=== PATIENT | female | born 1990 | race Caucasian/White ===

== ENCOUNTER 2019-11-29 23:06 | Emergency (ER) | payer BC, OTHER, SELFPAY ==
[2019-11-29 23:25] VITALS: BP 123/63; PULSE 82; RESP 16; TEMP 37.1; O2SAT 96; BMI 42.7
--- NOTE | 2019-11-29 23:35 | ED_ITS ---
HPI - Headache General: Chief Complaint: Headache Stated Complaint: dizzy, n/v Time Seen by Provider: 11/29/19 23:09 Source: patient Mode of arrival: ambulatory Limitations: no limitations History of Present Illness: HPI Narrative: Patient is a 28-year-old female who presents to ED today with complaints of a headache over the past 3 days. She is also describing some nausea and lightheadedness. Patient has an extensive history of migraine headaches in which she has suffered from for many years. She takes many medications in general but at least 4 different migraine medica tions. She states she has a neurologist back home in [place] that manages these. She tells me recently she has ran out of her temazepam that she takes for insomnia. She states the last time she ran out of this medication she also remembers feeling lightheaded. Patient denies neck pain/stiff neck, fevers, visual changes, URI symptoms, difficulty walking, slurred speech, numbness/tingling in her extremities. MD elicited complaint: headache Onset (ago): day(s) Onset description: gradually Location: frontal Pain scale (0-10): 8 Quality & Timing: similar to previous headaches Exacerbating factors: none Relieving factors: nothing Associated symptoms: Reports lightheadedness and nausea; Deny chest pain, fever(s), malaise, rash, syncope or vomiting Treatments prior to arrival: migraine medication Review of Systems General: Reports: 10 or more systems reviewed and unremarkable except in HPI and below Const: Denies: fever, chills, body aches, fatigue or malaise Eyes: Denies: change in vision, blurry vision, photophobia, floaters or seeing flashes ENMT: Denies: throat pain, enlarged tonsils, painful swallowing, oral sores/lesions, dental pain, ear pain, tinnitus, nasal discharge, nasal congestion, post nasal drip or facial/sinus pain Card: Reports: lightheadedness; Denies: chest pain, palpitations, irregular heart rhythm, syncope or shortness of breath on exertion Resp: Denies: shortness of breath, productive cough or pain on inspiration GI: Reports: nausea; Denies: abdominal pain, vomiting, vomiting blood, heartburn/indigestion or diarrhea : Denies: flank pain, difficulty urinating, painful urination, urinary frequency, urinary urgency or urinary hesitancy Musc: Denies: neck pain, back pain or joint pain Skin/Breast: Denies: rash, new lesion, changing lesion or changes in skin color Neuro: Reports: headache; Denies: numbness in extremities, weakness in extremities, changes in sensation, lack of coordination, difficulty walking, frequent falls, vertigo, slurred speech or difficulty communicating thoughts PFSH ED PFSH: Social History Smoking and tobacco status: never smoked Physical Exam Const: COMMON NORMALS: no apparent distress, oriented x3, no limitations and alert NUTRITIONAL APPEARANCE: obese morbidly obese ORIENTATION/CONSCIOUSNESS: Yes oriented to person, Yes oriented to place and Yes oriented to time HENMT: COMMON NORMALS: normocephalic, head/scalp atraumatic, hearing grossly normal bilaterally, external ears normal, EAC's normal, TM's normal bilaterally, external nose normal, nasal mucous membranes and turbinates normal, moist oral mucous membranes, oropharynx normal, dentition normal and gingiva normal HEAD & SCALP: normal to inspection, normocephalic and atraumatic FACE & SINUS: normal facial exam and sinuses nontender NOSE: external nose normal and nasal mucous membranes and turbinates normal EXTERNAL EAR: Yes external ears normal EXTERNAL AUDITORY CANAL: EAC's normal TYMPANIC MEMBRANE: TM's normal bilaterally THROAT: posterior oropharynx normal, tonsils normal and uvula midline Eye: COMMON NORMALS: PERRL, EOMs intact bilaterally and conjunctivae normal CONJUNCTIVA: Yes conjunctivae normal PUPIL: Yes PERRL Neck/C-Spine: COMMON NORMALS: full ROM, no lymphadenopathy and no meningeal signs Resp: COMMON NORMALS: normal respiratory effort Cardio: COMMON NORMALS: regular rate and regular rhythm RATE: regular rate RHYTHM: regular rhythm Neuro: [place] COMA SCALE: document GCS findings [place] coma scale eye opening: Spontaneous [place] coma scale verbal response: Orientated [place] coma scale motor response: Obey commands [place] coma scale total score: 15 COMMON NORMALS: oriented x3, CN's II-XII intact bilaterally, moves all extremities, no focal motor deficits and no sensory deficits noted SENSORIUM/ORIENTATION: Yes alert, Yes oriented to person, Yes oriented to place and Yes oriented to time MENINGEAL SIGNS: Yes no meningeal signs Skin: COMMON NORMALS: no rashes or lesions noted GENERAL SKIN EXAM: no rashes or lesions noted Course Vital Signs: Vital signs: Vital Signs Temperature 98.8 F 11/29/19 23:25 Pulse Rate 83 11/30/19 00:02 Respiratory Rate 18 11/30/19 00:02 Blood Pressure 135/78 11/30/19 00:02 Pulse Oximetry 94 11/30/19 00:02 MDM - Headache MDM Narrative: Medical decision making narrative: YANEZ improved after medications; states she feels comfortable going home Discharge Plan Discharge Patient Disposition: Home, Self-Care Clinical Impression: Migraine Qualifiers: Migraine type: without aura Status migrainosus presence: with status migrainosus Intractability: not intractable Qualified Code(s): G43.001 - Migraine without aura, not intractable, with status migrainosus Condition: Stable Prescriptions: No Action Acid Violin Maker Hand (ranitidine) 150 mg 150 mg PO BID RF: 0 benztropine 1 mg 1 mg PO BID RF: 0 lansoprazole 15 mg 15 mg PO DAILY RF: 0 metoprolol succinate 25 mg 25 mg PO DAILY RF: 0 quetiapine 400 mg 400 mg PO BEDTIME RF: 0 sertraline 100 mg 200 mg PO DAILY RF: 0 temazepam 30 mg 30 mg PO BEDTIME RF: 0 topiramate 50 mg 50 mg PO BID RF: 0 Discharge Orders: Discharge Order (Routine); Ordered 11/30/19 Ordered By: Domitila Quintana Discharge Diet: Usual diet Discharge Activity: Increase activity as tolerated Patient Instructions: Headache - Migraine (Adult), Migraine Headache (ED) Activity Restrictions/Additional Instructions: You may return to the emergency department for worsening/severe headache, fevers, visual changes, neck pain, repetitive episodes of nausea/vomiting, generally feeling ill, slurred speech, difficulty walking, any other concerns you may have. Coding Level of Care Code ED Sociocultural Anthropology Professor for Suman Fwd Exam Comprehensive
[2019-11-29] MEDS: ondansetron 2 mg/ML SDV 2 mL 4 MG IVP (23:57)
[2019-11-29] MEDS: ketorolac 30 mg/mL INJ IVP (23:58)
[2019-11-29] MEDS: temazepam 15 mg Capsule 30 MG PO (23:59)
[2019-11-30 00:02] VITALS: BP 135/78; PULSE 83; RESP 18; O2SAT 94
[2019-11-30] MEDS: sodium chloride 0.9% 1,000 ML 999 ML IV (00:02)
[2019-11-30 01:02] VITALS: BP 114/69; PULSE 79; RESP 16; O2SAT 96
== END 2019-11-30 01:04 | disposition home or self-care (01) ==
PROVIDERS: Emergency Provider Physician Assistant
DX: G43.001 Migraine without aura, not intractable, with status migrainosus (principal)
CPT/HCPCS: 12345; 96360; 96375; 99283; J1885; J2405; J7030

== ENCOUNTER 2019-12-14 00:28 | Emergency (ER) | payer BC, OTHER, SELFPAY ==
[2019-12-14 00:33] VITALS: BP 119/66; PULSE 87; RESP 16; TEMP 36; O2SAT 93; BMI 42.7
--- NOTE | 2019-12-14 00:44 | XR_ITS ---
WS: [id number] XR chest 1V portable [id number] REASON FOR EXAM: cough/congestion FINDINGS: The heart and mediastinal interfaces normal. The lung newell are well aerated no pneumonia, pleural effusion, pulmonary edema, no mass effect. Hilum and apices normal. No osseous abnormalities. XR/XR chest 1V portable [id number] IMPRESSION: Negative chest for acute pathology.
--- NOTE | 2019-12-14 00:44 | ECG_ITS ---
Measurements Intervals [place] Rate: 71 P: 17 IA: 198 QRS: 7 QRSD: 102 T: 9 QT: 436 QTc: 475 SINUS RHYTHM No previous ECG available for comparison Electronically Signed On 12-14-2019 17:15:28 CDT by Rolly Tucker M.D. [email or web address]
--- NOTE | 2019-12-14 00:45 | W.ED.ARRPALP ---
HPI - Arrhythmia/Palpitations General: Chief Complaint: Arrhythmia/Palpitations Stated Complaint: SOB Time Seen by Provider: 12/14/19 00:31 Source: patient Mode of arrival: ambulatory Limitations: no limitations History of Present Illness: HPI narrative: Patient is a 28-year-old female who presents to ED today with complaints of shortness of breath and palpitations that began several hours ago. Patient tells me symptoms began a few hours after receiving IM steroids at urgent care for a rash. Patient has no known cardiac or pulmonary history. Her vital signs are stable upon arrival. She has an additional complaint of a migraine headache. Patient has an extensive history of migraine headaches and takes several medications to treat these. She has a neurologist in [place] that she sees. She is not complaining of lightheadedness, dizziness, sensory changes, visual changes, cough or fevers. MD complaint: palpitations Onset (ago): hour(s) Duration: intermittent Context: occurred during rest Associated symptoms: Reports short of breath; Deny nausea, syncope or vomiting Review of Systems Const: Denies: fever or chills Eyes: Denies: change in vision or blurry vision Card: Reports: palpitations; Denies: chest pain, irregular heart rhythm, lightheadedness, syncope or shortness of breath on exertion Resp: Reports: shortness of breath; Denies: productive cough, non-productive cough, pain on inspiration, change in phlegm color, coughing up blood or chest congestion GI: Denies: abdominal pain, nausea, vomiting, heartburn/indigestion or diarrhea : Denies: painful urination Musc: Denies: neck pain, back pain or joint pain Skin/Breast: Denies: rash Neuro: Reports: headache; Denies: numbness in extremities, weakness in extremities, changes in sensation, lack of coordination, frequent falls, dizziness, vertigo, confusion or slurred speech PFS ED PFSH: Social History Smoking and tobacco status: never smoked Female Reproductive History: Date of last menstrual period: 11/28/19 Physical Exam Const: COMMON NORMALS: no apparent distress, oriented x3 and alert NUTRITIONAL APPEARANCE: obese ORIENTATION/CONSCIOUSNESS: Yes oriented to person, Yes oriented to place and Yes oriented to time HENMT: COMMON NORMALS: normocephalic and head/scalp atraumatic HEAD & SCALP: normocephalic and atraumatic Neck/C-Spine: COMMON NORMALS: full ROM, no lymphadenopathy, supple and no meningeal signs Chest: COMMONS NORMALS: inspection of chest normal and palpation of chest normal Resp: COMMON NORMALS: normal respiratory effort and clear to auscultation bilaterally AUSCULTATION: clear to auscultation bilaterally Cardio: COMMON NORMALS: regular rate and regular rhythm RATE: regular rate RHYTHM: regular rhythm GI: COMMON NORMALS: no masses Extremity: COMMON NORMALS: normal to inspection Neuro: DONAVAN COMA SCALE: document GCS findings [place] coma scale eye opening: Spontaneous [place] coma scale verbal response: Orientated [place] coma scale motor response: Obey commands [place] coma scale total score: 15 COMMON NORMALS: oriented x3, moves all extremities, no focal motor deficits, no sensory deficits noted and gait normal SENSORIUM/ORIENTATION: Yes alert, Yes oriented to person, Yes oriented to place and Yes oriented to time MENINGEAL SIGNS: Yes no meningeal signs Skin: COMMON NORMALS: no rashes or lesions noted GENERAL SKIN EXAM: no rashes or lesions noted Course Vital Signs: Vital signs: Vital Signs Temperature 96.8 F L 12/14/19 00:33 Pulse Rate 87 12/14/19 00:33 Respiratory Rate 16 12/14/19 00:33 Blood Pressure 119/66 12/14/19 00:33 Pulse Oximetry 93 12/14/19 00:33 MDM - Arrhythmia/Palpitations MDM Narrative: Medical decision making narrative: pts EKG is normal; her labs look okay; palpitations most likley caused by her IM steorids from earlier today; her migraine improved with medications here; recommend she follow up with neurologist for that Lab Data: Labs: Lab Results 12/14/19 12/14/19 Range/Units 00:40 00:40 WBC 9.1 (4.0-10.0) 10^3/ uL RBC 4.45 (4.1-5.3) 10^6/u L Hgb 11.8 (11.5-15.3) g/dL Hct 36.2 L (37.0-47.0) % MCV 81.3 (81-99) fL MCH 26.5 L (28.0-34.0) pg MCHC 32.6 (30.0-36.0) g/dL RDW 13.7 (12.1-15.1) % Plt Count 339 (130-400) 10^3/c mm MPV 9.8 (7.4-10.4) fL Neut % (Auto) 80.0 % Lymph % (Auto) 15.7 % [place] % (Auto) 3.5 % Eos % (Auto) 0.2 % Baso % (Auto) 0.2 % Neut # (Auto) 7.2 (1.8-7.7) 10^3/u L Lymph # (Auto) 1.4 (0.8-4.8) 10^3/u L [place] # (Auto) 0.3 (0.2-0.9) 10^3/u L Eos # (Auto) 0.0 (0.0-0.8) 10^3/u L Baso # (Auto) 0.0 (0.0-0.1) 10^3/u L Nucleated RBC % (a uto) 0 % Nucleated RBCs # 0.0 /100WBC Sodium 136 (136-145) mmol/L Potassium 4.0 (3.5-5.1) mmol/L Chloride 101 (98-107) mmol/L Carbon Dioxide 21 L (22-29) mmol/L Anion Gap 18.0 (5-19) BUN 10 (6-20) mg/dL Creatinine 0.6 (0.5-0.9) mg/dL GFR Calculation 119.9 (90-130) mL/min Glucose 147 H (65-115) mg/dL Calculated Osmolal ity 281 L (285-295) mOsm/k g Calcium 9.6 (8.5-10.5) mg/dL Magnesium 1.9 (1.7-2.3) mg/dL Total Bilirubin 0.2 (0.15-1.2) mg/dL AST 17 (0-32) U/L ALT 18 (0-33) U/L Alkaline Phosphata se 83 (35-105) IU/L Total Protein 7.8 (6.6-8.7) g/dL Albumin 4.6 (3.5-5.2) g/dL Globulin 3.2 (1.3-4.6) g/dL EKG Data^: EKG 1: EKG interpretation date: 12/14/19 EKG interpretation time: 01:06 Interpretation: Sinus rhythm Rate [address] elevation or depression changes noted Discharge Plan Discharge Patient Disposition: Home, Self-Care Clinical Impression: Palpitations Migraine Qualifiers: Migraine type: without aura Status migrainosus presence: with status migrainosus Intractability: not intractable Qualified Code(s): G43.001 - Migraine without aura, not intractable, with status migrainosus Condition: Stable Prescriptions: No Action Acid Digital Computer Operator (ranitidine) 150 mg 150 mg PO BID RF: 0 benztropine 1 mg 1 mg PO BID RF: 0 lansoprazole 15 mg 15 mg PO DAILY RF: 0 metoprolol succinate 25 mg 25 mg PO DAILY RF: 0 quetiapine 400 mg 400 mg PO BEDTIME RF: 0 sertraline 100 mg 200 mg PO DAILY RF: 0 temazepam 30 mg 30 mg PO BEDTIME RF: 0 topiramate 50 mg 50 mg PO BID RF: 0 Aimovig Autoinjector 70 mg INJECTION UNK RF: 0 [employer]gal [employer]-3 DHA 1,040 mg 4 tab PO DAILY RF: 0 buspirone 10 mg 10 mg PO TID RF: 0 [id number] 2 tab PO PRN PRN (Reason: migranes) RF: 0 dicyclomine 10 mg 10 mg PO BID RF: 0 levothyroxine 0.05 mg 1 tab PO AC RF: 0 lorazepam 1 mg 2 mg PO QID PRN (Reason: Anxiety) RF: 0 metformin 500 mg 500 mg PO DAILY RF: 0 ondansetron 4 mg 4 mg PO PRN PRN (Reason: Nausea) RF: 0 sumatriptan 100 mg 100 mg PO PRN PRN (Reason: migranes) RF: 0 trazodone 150 mg 300 mg PO BEDTIME RF: 0 valacyclovir 1 gram 2 tab PO PRN PRN (Reason: cold soars) RF: 0 ziprasidone HCl 80 mg 160 mg PO BEDTIME RF: 0 Discharge Orders: Discharge Order (Routine); Ordered 12/14/19 Ordered By: Domitila Quintana Patient Instructions: Palpitations (ED), Migraine Headache (ED) Coding Level of Care Code ED Police Crime Scene Technician for Chg Fwd Exam Comprehensive
[2019-12-14 00:59] LABS: Basophils % 0.2 %; Eosinophils % 0.2 %; Hematocrit 36.2 % (37.0-47.0); Hemoglobin 11.8 g/dL (11.5-15.3); Lymphocytes # 1.4 10^3/uL (0.8-4.8); Lymphocytes % 15.7 %; Mean Corpuscular HGB Conc 32.6 g/dL (30.0-36.0); Mean Corpuscular Hemoglobin 26.5 pg (28.0-34.0); Mean Corpuscular Volume 81.3 fL (81-99); Mean Platelet Volume 9.8 fL (7.4-10.4); Monocytes # 0.3 10^3/uL (0.2-0.9); Monocytes % 3.5 %; Neutrophils # 7.2 10^3/uL (1.8-7.7); Nucleated Red Blood Cells % 0 %; Platelet Count 339 10^3/cmm (130-400); Red Blood Count 4.45 10^6/uL (4.1-5.3); Red Cell Distribution Width 13.7 % (12.1-15.1); White Blood Count 9.1 10^3/uL (4.0-10.0)
[2019-12-14] MEDS: ketorolac 30 mg/mL INJ IVP (01:09)
[2019-12-14 01:10] LABS: Alanine Aminotransferase 18 U/L (0-33); Albumin Level 4.6 g/dL (3.5-5.2); Alkaline Phosphatase 83 IU/L (35-105); Aspartate Amino Transferase 17 U/L (0-32); Blood Urea Nitrogen 10 mg/dL (6-20); Calcium 9.6 mg/dL (8.5-10.5); Carbon Dioxide 21 mmol/L (22-29); Chloride 101 mmol/L (98-107); Globulin 3.2 g/dL (1.3-4.6); Glomerular Filtration Rate 119.9 mL/min (90-130); Glucose 147 mg/dL (65-115); Magnesium 1.9 mg/dL (1.7-2.3); Osmolality Calculated 281 mOsm/kg (285-295); Sodium 136 mmol/L (136-145); Total Bilirubin 0.2 mg/dL (0.15-1.2); Total Protein 7.8 g/dL (6.6-8.7)
--- NOTE | 2019-12-14 01:18 | PC.NURSE ---
Pt states she had adm 100mg of OTC bendaryl prior to ED arrival. Per PA, ok to cancel Benadryl. DUring assessment, pt states she is having nausea. PA notified
[2019-12-14] MEDS: ondansetron 2 mg/ML SDV 2 mL 4 MG IVP (01:21)
[2019-12-14 01:52] VITALS: BP 119/66; PULSE 76; RESP 14; O2SAT 94
--- NOTE | 2019-12-14 01:56 | PC.NURSE ---
I agree with Dora, Boom Pump Operator assessment
== END 2019-12-14 01:57 | disposition home or self-care (01) ==
PROVIDERS: Emergency Provider Physician Assistant
DX: R00.2 Palpitations (principal); G43.001 Migraine without aura, not intractable, with status migrainosus
CPT/HCPCS: 12345; 71045; 80053; 83735; 85025; 93005; 96374; 96375; 99283; J1885; J2405